=== PATIENT | female | born 1955 | race Caucasian/White ===

== ENCOUNTER 2018-10-31 15:11 | Outpatient (CLI) | payer MEDICARE, OTHER ==
--- NOTE | 2018-10-31 16:31 | MRI ---
MRI RIGHT SHOULDER WITHOUT CONTRAST: 10/31/18 HISTORY: M75.111 - incomplete tear of right rotator cuff. COMPARISON: MRI from 2014. FINDINGS: BICEPS TENDON: Moderate intra-articular tendinosis biceps tendon with interstitial split tear. LABRUM: Tear of the posterior superior labrum and posterior inferior labrum to the labral substance. ROTATOR CUFF: There is approximately 50% undersurface tearing of the supraspinatus tendon with mild interstitial ty pe delamination. No full thickness perforation. Mild tendinosis of the infraspinatus tendon. Low grad e interstitial nearing of the footprint of the infraspinatus tendon. BONES: Moderate degenerative disease of the acromioclavicular joint. Type I acromion. There is a benign appe aring chondroid lesion in the proximal humerus. MUSCLES: The muscle bulk is normal. No significant atrophy. IMPRESSION: 1. Posterior superior and posterior inferior intrasubstance labral tear. 2. Benign appearing chondroid lesions within the proximal humeral metaphysis abutting the physea l scar as well as just underneath the articular surface of the inferior humeral head. 3. Progressed from 2014 undersurface partial tearing of the entirety of the supraspinatus tendon approximately 30 to 40% thickness, without a full thickness perforation. There is associated mild in terstitial delamination of the supraspinatus and infraspinatus tendons. 4. No muscle atrophy. POS: CET
== END 2018-10-31 15:12 | disposition home or self-care (01) ==
LOC: SCSMRI 15:11
PROVIDERS: ATTEND Orthopaedic Surgery
DX: M75.111 Incomplete rotator cuff tear or rupture of right shoulder, not specified as traumatic (principal); S43.401A Unspecified sprain of right shoulder joint, initial encounter; M75.91 Shoulder lesion, unspecified, right shoulder

== ENCOUNTER 2019-12-31 10:56 | Outpatient (CLI) | payer MEDICARE ==
--- NOTE | 2019-12-31 12:08 | CT ---
CT ANGIOGRAM NECK WITH CONTRAST: DATE: 12/31/2019 HISTORY: 64-year-old female with atherosclerotic disease and headache TECHNIQUE: After IV contrast injection, arterial bolus chasing technique scan performed from top of aortic arch to skull base Coronal and sagittal 3-D MIP reconstructions. FINDINGS: Nonspecific diffuse mild very small subtle groundglass changes throughout visualized lung apices. Extensive atherosclerotic calcification of top of aortic arch. Brachiocephalic: Multifocal atherosclerotic plaque. Mild stenosis at origin. Right subclavian: Multifocal areas of obscuring by streak artifact from adjacent dense IV contrast florencio stephanie in veins. Left subclavian: Prominent plaque at origin causing moderate stenosis. The rest of the vessel is norm al in caliber. Right vertebral: No high-grade stenosis identified. Left vertebral: No high-grade stenosis identified. Right common carotid: Proximal portion obscured by streak artifact from adjacent dense IV contrast ma terial in vein. No high-grade stenosis in rest of vessel. Left common carotid: No high-grade stenosis. Right internal carotid: Calcified plaque at proximal vessel including origin, causing mild stenosis. Rest of the vessel is normal. Left internal carotid: Calcified plaque in proximal vessel, including origin, without significant jaclyn nosis. The rest of the vessel is normal. IMPRESSION: 1) atherosclerotic disease involving multiple arteries, including proximal internal carotids. 2) no evidence of hemodynamically significant stenosis in the internal carotids. 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
[2019-12-31] MEDS ORDERED: Iopamidol-370 76% 500 ML 1 ML ONE (14:13)
== END 2019-12-31 10:57 | disposition home or self-care (01) ==
LOC: BICCT 10:56
PROVIDERS: ATTEND Internal Medicine Cardiovascular Disease
DX: I65.23 Occlusion and stenosis of bilateral carotid arteries (principal); I70.8 Atherosclerosis of other arteries
CPT/HCPCS: 70498; Q9967

== ENCOUNTER 2020-10-04 19:02 | Emergency (ER) | payer MEDICARE, OTHER ==
[2020-10-04] MEDS ORDERED: Dexamethasone 10 MG/ML VIAL ONE (19:27)
[2020-10-04] MEDS ORDERED: diphenhydrAMINE 25 MG CAP ONE (19:27)
== END 2020-10-04 20:25 | disposition left against medical advice (07) ==
LOC: ERS 19:02
DX: L50.9 Urticaria, unspecified (principal); R07.9 Chest pain, unspecified; E11.9 Type 2 diabetes mellitus without complications; K21.9 Gastro-esophageal reflux disease without esophagitis; E78.5 Hyperlipidemia, unspecified; I10 Essential (primary) hypertension; F17.210 Nicotine dependence, cigarettes, uncomplicated; Z79.84 Long term (current) use of oral hypoglycemic drugs; Z79.82 Long term (current) use of aspirin
CPT/HCPCS: 93005; J1100; Q0163

== ENCOUNTER 2020-10-07 16:17 | Emergency (ER) | payer MEDICARE, OTHER ==
[2020-10-07 18:50] LABS: #Basophils 0.1 thou/uL (0.0-0.2); #Eosinphils 0.1 thou/uL (0.0-0.7); #Lymphocytes 2.4 thou/uL (1.20-3.40); #Monocytes 0.8 thou/uL (0.11-0.59); #Neutrophils 4.7 thou/uL (1.40-6.50); %Basophils 1.2 % (0.0-1.0); %Eosinophils 1.3 % (0.0-10.0); %Lymphocytes 29.4 % (21.0-51.0); %Monocytes 10.1 % (0.0-10.0); %Neutrophils 58.1 % (42.0-75.0); Hemoglobin 13.2 g/dL (12.0-16.0); Mean Corpuscular HGB CONC 34.1 g/dL (32.0-36.0); Mean Corpuscular Hemoglobin 31.4 pg (27.0-31.0); Mean Corpuscular Volume 92.1 fL (78.0-98.0); Mean Platelet Volume 10.6 fL (7.4-10.4); Platelet Count 61 thou/uL (130-400); RBC Distribution Width 12.3 % (11.5-14.5); Red Blood Cell (RBC) Count 4.21 mill/uL (4.20-5.40)
[2020-10-07 18:57] LABS: INR-International Normal Ratio 0.9; PTT 26.2 sec (22.9-36.1); Prothrombin Time 12.2 sec (12.0-14.7)
[2020-10-07 19:08] LABS: ALT (SGPT) 16 U/L (8-55); AST (SGOT) 13 U/L (5-34); Alkaline Phosphatase 80 U/L (40-110); Anion Gap 13 mmol/L (10-20); BUN (Urea Nitrogen) 20 mg/dL (9.8-20.1); Bilirubin, Total 0.8 mg/dL (0.2-1.2); Calc. Creatinine Clearance 0 mL/min (70-130); Calcium 9.4 mg/dL (7.8-10.44); Carbon Dioxide 23 mmol/L (23-31); Chloride 105 mmol/L (98-107); Globulin 2.8 g/dL (2.4-3.5); Glucose 103 mg/dL (80-115); Potassium 3.7 mmol/L (3.5-5.1); Protein, Total 6.8 g/dL (5.8-8.1); Sodium 137 mmol/L (136-145)
[2020-10-07] MEDS ORDERED: Acetaminophen 500 MG TAB ONE (19:38)
== END 2020-10-07 20:33 | disposition home or self-care (01) ==
LOC: ERS 16:17
DX: D69.6 Thrombocytopenia, unspecified (principal); E11.9 Type 2 diabetes mellitus without complications; K21.9 Gastro-esophageal reflux disease without esophagitis; E78.5 Hyperlipidemia, unspecified; I10 Essential (primary) hypertension; F17.210 Nicotine dependence, cigarettes, uncomplicated; Z79.899 Other long term (current) drug therapy; Z79.84 Long term (current) use of oral hypoglycemic drugs
CPT/HCPCS: 36415; 70491; 74177; 80053; 85025; 85610; 85730

== ENCOUNTER 2021-10-20 16:13 | Emergency (ER) | payer MEDICARE, OTHER ==
[2021-10-20] MEDS ORDERED: Acetaminophen 325 MG TAB ONE (17:54)
== END 2021-10-20 18:53 | disposition home or self-care (01) ==
LOC: ERS 16:13
DX: S02.2XXA Fracture of nasal bones, initial encounter for closed fracture (principal); S01.21XA Laceration without foreign body of nose, initial encounter; K21.9 Gastro-esophageal reflux disease without esophagitis; E78.5 Hyperlipidemia, unspecified; I10 Essential (primary) hypertension; F17.210 Nicotine dependence, cigarettes, uncomplicated; E11.9 Type 2 diabetes mellitus without complications; W22.8XXA Striking against or struck by other objects, initial encounter
CPT/HCPCS: 70486

== ENCOUNTER 2024-04-10 19:33 | Observation (INO) | payer MEDICARE, OTHER ==
[2024-04-10] MEDS ORDERED: Acetaminophen 325 MG TAB PO PRN (22:15)
[2024-04-10] MEDS ORDERED: Calcium Carbonate 500 MG ChewTAB PO PRN (22:15)
[2024-04-10] MEDS ORDERED: Senokot S 8.6-50 MG TAB PO PRN (22:15)
[2024-04-10] MEDS ORDERED: Ondansetron PF 4 MG/2 ML Vial IVP PRN (22:15)
[2024-04-10 22:28] VITALS: BMI 21.4
[2024-04-10] MEDS ORDERED: Mag-Al Plus 1200/1200/120 MG (30 mL) UDCUP PO PRN (23:20)
[2024-04-10] MEDS: Sodium Chloride 0.9% 1,000 ML IV SCH (23:43)
[2024-04-10] MEDS: Mag-Al Plus 1200/1200/120 MG (30 mL) UDCUP PO SCH (23:51)
[2024-04-10] MEDS: Pantoprazole 40 MG VIAL IVP SCH (23:51)
[2024-04-11 00:13] LABS: Troponin I Less than 0.010 ng/mL (< 0.028)
[2024-04-11] MEDS ORDERED: Dextrose 50% Abboject 50 ML SYRINGE SLOW IVP PRN (00:13)
[2024-04-11] MEDS ORDERED: Insulin Lispro 100 UNIT/ML 10 ML VIAL SC PRN ×2 (00:13)
[2024-04-11] MEDS ORDERED: Glucagon 1 MG/ML KIT IM PRN (00:13)
[2024-04-11] MEDS ORDERED: Dextrose 5% in Water 1,000 ML IV PRN (00:13)
[2024-04-11 02:07] LABS: Troponin I Less than 0.010 ng/mL (< 0.028)
[2024-04-11 04:22] LABS: #Basophils 0.04 10x3/uL (0.0-0.2); %Basophils 0.6 % (0.0-1.0); %Eosinophils 1.8 % (0.0-10.0); %Lymphocytes 43.5 % (21.0-51.0); %Monocytes 10.2 % (0.0-10.0); %Neutrophils 43.7 % (42.0-75.0); Hematocrit 35.1 % (36.0-47.0); Hemoglobin 11.4 g/dL (12.0-16.0); Mean Corpuscular HGB CONC 32.5 g/dL (32.0-36.0); Mean Corpuscular Hemoglobin 29.2 pg (27.0-31.0); Mean Platelet Volume 11.7 fL (7.4-10.4); Platelet Count 174 10x3/uL (130-400); RBC Distribution Width 14.4 % (11.5-14.5)
[2024-04-11 04:33] LABS: Hemoglobin A1c 6.2 % (4.0-6.0)
[2024-04-11 04:38] LABS: ALT (SGPT) 8 U/L (8-55); AST (SGOT) 12 U/L (5-34); Albumin 3.2 g/dL (3.4-4.8); Alkaline Phosphatase 50 U/L (40-110); Anion Gap 12 mmol/L (10-20); BUN (Urea Nitrogen) 16 mg/dL (9.8-20.1); Bilirubin, Total 0.6 mg/dL (0.2-1.2); Calc. Creatinine Clearance 64 mL/min (70-130); Calcium 8.7 mg/dL (7.8-10.44); Carbon Dioxide 25 mmol/L (23-31); Chloride 107 mmol/L (98-107); Cholesterol 98 mg/dl (< 200 Desired); Estimated GFR 76; Globulin 2.4 g/dL (2.4-3.5); Glucose 92 mg/dL (80-115); HDL Cholesterol 33 mg/dL (>60 Neg Risk); LDL Cholesterol, Calculated 49 mg/dL; Potassium 3.4 mmol/L (3.5-5.1); Protein, Total 5.6 g/dL (5.8-8.1); Sodium 141 mmol/L (136-145); Triglycerides 79 mg/dL (Less than 150)
[2024-04-11 07:36] VITALS: TEMP 97.8
[2024-04-11] MEDS ORDERED: Potassium Chloride 20 MEQ TAB PO SCH ×2 (08:59→14:00)
[2024-04-11] MEDS ORDERED: Non-Formulary Item 1 EACH (Ranitidine Hcl [Ranitidine Hcl] 150 MG Tablet) PO SCH (09:00)
[2024-04-11] MEDS ORDERED: Empagliflozin 25 MG TAB PO SCH (09:00)
[2024-04-11] MEDS ORDERED: Hydrochlorothiazide 25 MG TAB PO SCH ×2 (09:00)
[2024-04-11] MEDS ORDERED: Simvastatin 10 MG TAB PO SCH (09:00)
[2024-04-11] MEDS ORDERED: Aspirin Chewable 81 MG TAB PO SCH (09:00)
[2024-04-11] MEDS ORDERED: Losartan 25 MG TAB PO SCH ×2 (09:00)
[2024-04-11] MEDS ORDERED: Famotidine/PF 20 mg/2ml Vial SLOW IVP SCH (09:00)
[2024-04-11] MEDS ORDERED: Pantoprazole DR 40 MG TAB PO SCH (09:00)
[2024-04-11] MEDS ORDERED: Enoxaparin 40 MG (0.4 mL) SYRINGE SC SCH (09:00)
[2024-04-11] MEDS ORDERED: Rosuvastatin 20 MG TAB PO SCH (09:00)
[2024-04-11] MEDS ORDERED: Regadenoson 0.4 MG/5 ML SYRINGE ONE (10:19)
[2024-04-11 12:30] VITALS: BP 138/66
[2024-04-12] MEDS ORDERED: Aspirin 81 mg Enteric Coated Tablet PO SCH (09:00)
== END 2024-04-11 14:25 | disposition home or self-care (01) ==
LOC: OBS 19:33 → INTOOBSV 19:33
PROVIDERS: ADMIT Internal Medicine; ATTEND Internal Medicine
DX: R07.89 Other chest pain (principal); I10 Essential (primary) hypertension; I73.9 Peripheral vascular disease, unspecified; E11.9 Type 2 diabetes mellitus without complications; E78.5 Hyperlipidemia, unspecified; K21.9 Gastro-esophageal reflux disease without esophagitis; F17.200 Nicotine dependence, unspecified, uncomplicated; Z88.5 Allergy status to narcotic agent; Z79.82 Long term (current) use of aspirin; Z79.84 Long term (current) use of oral hypoglycemic drugs; Z79.899 Other long term (current) drug therapy
CPT/HCPCS: 78452; 80053; 80061; 82962; 83036; 84484 ×2; 85025; 93017; 94760 ×2; A9502; J2470; J2785 ×2; J7030; 36415; 36416; 96374; G0378